=== PATIENT | female | born 1965 | race Caucasian/White ===

== ENCOUNTER 2023-06-17 13:26 | Emergency (ER) | payer OTHER ==
[2023-06-17] MEDS ORDERED: Amoxicillin/Potassium Clav 875 MG TAB ONE (13:53)
[2023-06-17] MEDS ORDERED: Ketorolac Tromethamine 60 MG/2 ML VIAL ONE (13:53)
== END 2023-06-17 14:10 | disposition home or self-care (01) ==
LOC: NAV ERS 13:26
DX: K04.7 Periapical abscess without sinus (principal); J44.9 Chronic obstructive pulmonary disease, unspecified
CPT/HCPCS: 96372; 99283; J1885